=== PATIENT | male | born 1980 | race Hispanic/Latino ===

== ENCOUNTER 2019-12-27 08:46 | Outpatient (CLI) | payer BC, SELFPAY ==
--- NOTE | ~2019-12-27 | US_ITS ---
US thyroid DATE: 12/27/2019 10:04 INDICATION: Thyroid gland mass TECHNIQUE: Real-time and color flow imaging of the thyroid gland COMPARISON: 11/23/2018 thyroid ultrasound examination FINDINGS: There is no thyromegaly, with heterogeneous echotexture and hypervascularity on color flow imaging. The right lobe measures 4 x 1.9 x 2 cm. The left lobe measures 4.1 x 1.5 x 1.3 cm. There is a stable approximately 6 mm hyperechoic smooth ta ller than wide lesion of the left lobe of the thyroid gland which appears stable since 11/23/2018. IMPRESSION: Enlarged heterogeneous hypervascular thyroid Stable 6 mm TR 4 hyperechoic smooth taller than wide lesion of the left lobe of thyroid gland, not si gnificantly changed since 11/23/2018 Reviewed, dictated and finalized at [facility]. Reviewed, dictated and finalized at [facility]. IMPRESSION: Enlarged heterogeneous hypervascular thyroid Stable 6 mm TR 4 hyperechoic smooth taller than wide lesion of the left lobe of thyroid gland, not significantly changed since 11/23/2018
== END 2019-12-27 08:47 | disposition home or self-care (01) ==
PROVIDERS: PCP Registered Nurse; Visit Provider Registered Nurse
DX: E04.9 Nontoxic goiter, unspecified (principal)
CPT/HCPCS: 76536

== ENCOUNTER 2022-08-19 19:20 | Emergency (ER) | payer MEDICAID, SELFPAY ==
[2022-08-19 19:26] VITALS: BP 169/75; PULSE 68; RESP 18; TEMP 36.9; O2SAT 99
--- NOTE | 2022-08-19 20:44 | ED.HA ---
HPI - Headache General Chief Complaint: Headache Stated Complaint: Right sided head pain Time Seen by Provider: 08/19/22 20:30 History of Present Illness HPI Narrative: Patient is a 42 year old male here for evaluation of pain in his right jaw x 3 days. Patient states the pain is worse with opening the mouth and is also present in the left side of his neck. Reports mild sore throat. No visual changes, shortness of breath, fevers, chills, nausea or vomiting. Denies history of previous similar headache. He attempted Tylenol without relief of his symptoms. Related Data Allergies Allergy/AdvReac Type Severity Reaction Status Date / Time No Known Allergies Allergy Verified 08/19/22 19:28 Review of Systems Review of Systems: Gen.: Denies fevers or chills Eyes: Denies eye pain or visual change ENT: Reports right-sided jaw pain. Denies congestion Respiratory: Denies shortness of breath or cough CV: Denies chest pain or palpitations GI: Denies abdominal pain nausea, emesis or diarrhea denies burning, urgency, frequency or hematuria Musculoskeletal: Denies back pain or muscle pain Neuro: Denies numbness, tingling, weakness or focal weakness Skin: Denies rash Except as documented, all other systems reviewed and negative Exam Narrative: APPEARANCE: Well appearing, no pain in distress, well-nourished. Head: Normocephalic and atraumatic. EYES: PERRLA/EOMI, conjunctivae clear NOSE: No nasal drainage EARS: External ear normal in appearance THROAT: Tender to palpation along angle of right mandible, crepitus noted with movement of the jaw Oropharynx is clear. Mucous membranes are moist. NECK: Supple. No adenopathy, no masses. RESPIRATORY: Airway patent, respirations nonlabored. Clear to auscultation bilaterally, no rales, rhonchi, wheezing. CARDIOVASCULAR: Regular rate and rhythm without murmurs, rubs, or gallops. ABDOMINAL: Normoactive bowel sounds. Soft, nontender, nondistended. No rebound tenderness or guarding. MUSCULOSKELETAL: Extremities are warm and well-perfused. Moves all extremities well. No edema. NEURO: Cranial nerves II through XII intact. Normal speech. No focal neurologic deficits. SKIN: Skin is warm and dry. No rashes. PSYCHIATRIC: Normal affect/mood. Course Vital Signs Vital signs: Vital Signs Temperature 98.4 F 08/19/22 19:26 Pulse Rate 68 08/19/22 19:26 Respiratory Rate 18 08/19/22 19:26 Blood Pressure 169/75 H 08/19/22 19:26 Pulse Oximetry 99 08/19/22 19:26 Temperature 98 F 08/19/22 22:12 Pulse Rate 77 08/19/22 22:12 Respiratory Rate 18 08/19/22 22:12 Blood Pressure 118/69 08/19/22 22:12 Pulse Oximetry 99 08/19/22 22:12 MDM - Headache MDM Narrative Medical decision making narrative: Patient is a 42-year-old male here for evaluation of right-sided headache concentrated around his jaw for the past day. He is non-toxic in appearance and has normal vital signs. He has no tenderness to his scalp on exam, he does have reproducible pain and crepitus with range of motion of his jaw. He has poor dentition throughout his oral cavity; but his tonsils are not swollen or erythematous. No visible abscess. He is neurologically intact. Patient was given medicine in the ED with improvement of his symptoms. Suspect TMJ. Less likely temporal arteritis versus acute intracranial process. He will be provided with ENT follow-up. Return precautions were discussed and he voiced understanding. Discharge Plan Discharge Clinical Impression: TMJ arthropathy Patient Disposition: Home, Self-Care Condition: Stable Instructions: Antibiotic Form, Temporomandibular Disorder (ED) Additional Instructions: Your symptoms today are likely consistent with TMJ disease and arthritis in your jaw. Please continue Tylenol and ibuprofen as needed for pain. Follow-up with the ENT next week if your symptoms persist. Return to the ED for visual changes, nausea or vomiting, fevers or chills. Fo
[2022-08-19] MEDS: PROCHLORPERAZINE EDISYLATE 10 MG/2 ML VIAL IV PUSH (21:49)
[2022-08-19] MEDS: SODIUM CHLORIDE 0.9% IV 1,000 ML 999 ML IV CONT (21:49)
[2022-08-19] MEDS: DEXAMETHASONE SOD PHOS INJ 4 MG/ML VIAL IV PUSH (21:50)
[2022-08-19] MEDS: KETOROLAC 15 MG/ML VIAL (*BKC) IV PUSH (21:50)
[2022-08-19 22:12] VITALS: BP 118/69; PULSE 77; RESP 18; TEMP 36.6; O2SAT 99
--- NOTE | 2022-08-29 05:55 | PC.NURSE ---
IV NS bolus completed and stopped on 08/19/2022 @ 2300.
== END 2022-08-19 22:13 | disposition home or self-care (01) ==
PROVIDERS: Emergency Provider Physician Assistant; PCP Registered Nurse
DX: M26.651 Arthropathy of right temporomandibular joint (principal)
CPT/HCPCS: 96361; 96374; 96375; 99284; J0780; J1100; J1885; J7030

== ENCOUNTER 2023-08-29 16:24 | Outpatient (CLI) | payer OTHER, SELFPAY ==
--- NOTE | ~2023-08-29 | US_ITS ---
EXAMINATION: US thyroid DATE: 08/29/2023 17:01 INDICATION: Mass of thyroid. TECHNIQUE: Multiple ultrasound images of the thyroid were obtained. COMPARISON: Thyroid ultrasound 12/27/2019, 11/23/2018 FINDINGS: The right thyroid lobe measures 4.5 x 1.5 x 2.3 cm. The left thyroid lobe measures 4.1 x 1.6 x 2.0 c m. The thyroid demonstrates heterogeneous hypoechogenicity and increased vascularity. In the left th yroid lobe, there is a 7 mm solid, hyperechoic, wider than tall nodule with smooth margin without ech ogenic foci (TI-RADS TR3). IMPRESSION: 1. Heterogeneous, hypervascular thyroid, consistent with chronic lymphocytic (Theresa) thyroiditis. 2. Small thyroid nodule, stable from 11/23/2018, likely benign. No follow-up is needed. Reviewed, dictated and finalized at [facility] IMPRESSION: 1. Heterogeneous, hypervascular thyroid, consistent with chronic lymphocytic (H ashimoto) thyroiditis. 2. Small thyroid nodule, stable from 11/23/2018, likely benign. No follow-up is n eeded.
== END 2023-08-29 16:25 | disposition home or self-care (01) ==
PROVIDERS: PCP Registered Nurse; Visit Provider Registered Nurse
DX: E04.9 Nontoxic goiter, unspecified (principal)
CPT/HCPCS: 76536

== ENCOUNTER 2025-01-14 11:36 | Emergency (ER) | payer OTHER, SELFPAY ==
--- NOTE | ~2025-01-14 | XR_ITS ---
EXAM/ PROCEDURE: XR foot RT min 3V - 01/14/2025 11:47 CDT HISTORY: 44 years old Male with RT foot pain, med/lat/top of foot injury yesterday COMPARISON: None available TECHNIQUE: Three view(s) FINDINGS/ IMPRESSION: There are no fractures or dislocations.Joint space narrowing, subchondral sclerosis, subchondral cyst formation and osteophyte formation, compatible with mild osteoarthritis. Mild calcaneal enthesopathy . Reviewed, dictated and finalized at [facility].
--- NOTE | 2025-01-14 11:44 | ED_ITS ---
HPI - Extremity Injury (Lower) General Chief Complaint: Extremity Injury, Lower Stated Complaint: Right Foot Pain Time Seen by Provider: 01/14/25 11:37 Source: patient Mode of arrival: ambulatory Limitations: no limitations History of Present Illness HPI Narrative: Patient is a 44-year-old male who presents right foot pain after machine fell on foot yesterday while doing yd work. States he was initially able to walk but after few hours the swelling began and it hurts to ambulate. Patient has been using home crutches since. Related Data Home Medications ?Medication ?Instructions ?Recorded ?Confirmed ?Last Taken ?Type amlodipine 2.5 mg tablet mg 01/14/25 Unknown History metoprolol succinate 25 mg mg PO 01/14/25 Unknown History tablet,extended release 24 hr Allergies Allergy/AdvReac Type Severity Reaction Status Date / Time No Known Allergies Allergy Verified 01/14/25 11:37 Review of Systems Review of Systems: All systems reviewed & are unremarkable except as noted in HPI and below Constitutional: Constitutional: Denies body ache(s), Denies chills, Denies fatigue, Denies fever(s), Denies headache(s), Denies malaise and Denies weakness Eyes: Eyes: Denies blurry vision, Denies irritation and Denies loss of vision ENT: Denies otalgia, Denies headache(s), Denies nasal discharge, Denies sinus pain and Denies sore throat Cardiovascular: Cardiovascular: Denies chest pain, Denies irregular heart rhythm and Denies dyspnea Respiratory: Respiratory: Denies dyspnea Gastrointestinal: Gastrointestinal: Denies abdominal pain, Denies melena, Denies hematochezia, Denies diarrhea, Denies nausea and Denies vomiting Musculoskeletal: Musculoskeletal: Denies back pain, Denies myalgias and Reports arthralgias Integumentary/Breasts: Skin/Breast: Denies pruritus and Denies rash Neurologic: Denies headache(s), Denies loss of vision and Denies weakness Psychiatric: Psychiatric: Reports no additional psychiatric complaints Endocrine: Endocrine: Denies fatigue PMFSH Comments At time of signature, agree with nursing past medical, surgical, social and family history. There is no relevant family history pertinent to the presenting complaint. Exam Const: General: cooperative, healthy appearing, comfortable, no acute distress and well nourished Nutritional Appearance: well nourished Orientation/consciousness: patient oriented x3 Limitations: no limitations HENMT: Head: normal to inspection, normocephalic and atraumatic Ears: hearing grossly normal bilaterally and external ears normal Face/Nose/Sinus: Normal external nose present, normal facial exam and face symmetric Face and sinus: normal facial exam and face symmetric Mouth: Yes lip normal Eyes: General: appearance normal, both eyes and all related structures Alignment and Position: alignment normal and position normal Periorbital: periorbital findings normal Eyelids: eyelids normal Pupils: Equal, round and reactive pupils present EOM: EOMs intact bilaterally Neck: Neck: normal visual inspection, full ROM and supple Chest: Chest palpation & inspection: normal inspection of the chest Resp: Effort & Inspection: normal respiratory effort and able to speak in complete sentences Auscultation: clear to auscultation bilaterally Cardio: Rate: regular rate Rhythm: regular rhythm Heart sounds: S1 normal heart sound present and S2 normal heart sound present GI: Inspection: normal to inspection Skin: General skin exam: normal color and no rashes or lesions noted Neuro: General: patient oriented x3 and moves all extremities Cranial nerves: Yes Equal, round and reactive pupils present Speech: normal speech Gait exam (Neuro): Normal gait present Extrem: General: normal to inspection, full ROM and no edema Right lower extremity: ankle Details: normal to inspection and normal ROM; achilles tendon exam normal and foot Details: normal capillary refill, tenderness Location: of the dorsal foot Location: proximally, toes with normal ROM, edema Location: diffusely, ecchymosis distal , vascular exam Details: dorsalis pedis pulse present and normal capillary refill and tendon exam Details: active flexion normal Location: of all toes and active extension normal Location: of all toes; no unusual warmth Psych: Appearance: grossly normal and well kempt Mental Status: mental status grossly normal Speech and movement: Normal speech and movement present Affect: normal affect Attitude: cooperative Thought process: Normal thought process present Course Course Emergency Course: Patient is aware of diagnosis, understands and agrees to treatment plan. Anticipatory guidance given. Patient agrees to follow-up as directed and is aware of reasons to seek care at the emergency department. Portions of this record may have been created with voice recognition software Level of Care: Express Care Visit Vital Signs Vital signs: Reviewed MDM - Extremity Injury (Lower) MDM Narrative Medical decision making narrative: Patient using home crutches well with no assistance. elie wrap applied Pt well hydrated appearing, in no respiratory distress, hemodynamically stable. Recommend supportive care. The patient is stable at time of discharge the clinical impression was discussed and the patient was given the opportunity to ask questions, which were addressed as completely as possible given the information available at present. Anticipatory guidance and return to care precautions were discussed and the importance of primary care follow-up was stressed and encouraged. The patient voiced understanding of the plan, indications to return, and the need for follow-up. Exam findings show no acute concerns or changes Patient is appropriate for outpatient treatment and follow-up. Differential Diagnosis Differential diagnosis: Likely ankle sprain and strain, ankle fracture and other (Foot fracture, foot strain, contusion, less likely crush injury or compartment syndrome) Medical Records Attestation: I reviewed the patient's medical records. Imaging Data Radiologist's impression: EXAM/ PROCEDURE: XR foot RT min 3V - 01/14/2025 11:47 CDT HISTORY: 44 years old Male with RT foot pain, med/lat/top of foot injury yesterday COMPARISON: None available TECHNIQUE: Three view(s) FINDINGS/ IMPRESSION: There are no fractures or dislocations.Joint space narrowing, subchondral sclerosis, subchondral cyst formation and osteophyte formation, compatible with mild osteoarthritis. Mild calcaneal enthesopathy Discharge Plan Discharge Clinical Impression: Foot sprain Qualifiers: Encounter type: initial encounter Laterality: right Qualified Code(s): S93.601A - Unspecified sprain of right foot, initial encounter Patient Disposition: Home Condition: Stable Instructions: Foot Sprain (ED) Additional Instructions: Xray showed no fracture. Minimize activities that aggravate the condition The RICE protocol. Follow the RICE protocol as soon as possible after your injury: Rest your ankle by not walking on it. Ice should be immediately applied to keep the swelling down. It can be used for 20 to 30 minutes, three or four times daily. Do not apply ice directly to your skin. Compression dressings, bandages or elie-wraps will immobilize and support your injured ankle. Elevate your ankle above the level of your heart as often as possible during the first 48 hours. Medication: Nonsteroidal anti-inflammatory drugs (NSAIDs) such as ibuprofen and naproxen can help control pain and swelling. Because they improve function by both reducing swelling and controlling pain, they are a better option for mild sprains than narcotic pain medicines. Please schedule a follow-up visit with your personal physician for further evaluation and treatment within 1week OR If your symptoms persist, change or worsen significantly before you can contact your personal physician then please, without delay, go to the emergency department for further evaluation. La radiograf?a no mostr? fractura. Minimice las actividades que agraven la afecci?n. El protocolo RICE. Siga el protocolo RICE lo antes posible despu?s de la lesi?n: Descanse el tobillo evitando caminar. Aplique hielo inmediatamente para reducir la hinchaz?n. Puede usarlo de 20 a 30 minutos, kimmy o cuatro veces al d?a. No aplique hielo directamente sobre la piel. Los vendajes de compresi?n, las vendas o las vendas el?sticas inmovilizar?n y sujetar?n el tobillo lesionado. Eleve el tobillo por encima del nivel del coraz?n con la mayor frecuencia posible latonia las primeras 48 horas. Medicamentos: Los antiinflamatorios no esteroideos (MICHAEL), maxx el ibuprofeno y el naproxeno, pueden ayudar a controlar el dolor y la hinchaz?n. Dado que mejoran la funci?n al reducir la hinchaz?n y controlar el dolor, son epifanio mejor opci?n para los esguinces leves que los analg?sicos narc?ticos. Programe epifanio visita de seguimiento con kate m?dico personal para epifanio evaluaci?n y tratamiento adicionales dentro de 1 semana O si charles s?ntomas persisten, cambian o empeoran significativamente antes de poder comunicarse con kate m?dico personal, entonces, sin demora, dir?arya al departamento de emergencias para epifanio evaluaci?n adicional. Patient Language: [place]er Prescriptions: No Action amlodipine 2.5 mg tablet metoprolol succinate 25 mg tablet extended release 24 hr PO Follow-up/Referrals: Amanda,JOSE L Guillen [Primary Care Provider] - 3 Days Andrés Patterson MD [Physician] - Time of Disposition: 12:17
[2025-01-14 11:45] VITALS: BP 141/64; PULSE 64; RESP 18; TEMP 36.8; O2SAT 98
== END 2025-01-14 12:30 | disposition home or self-care (01) ==
PROVIDERS: Emergency Provider Nurse Practitioner Family; PCP Registered Nurse
DX: S93.601A Unspecified sprain of right foot, initial encounter (principal); W20.8XXA Other cause of strike by thrown, projected or falling object, initial encounter; I10 Essential (primary) hypertension; E05.90 Thyrotoxicosis, unspecified without thyrotoxic crisis or storm
CPT/HCPCS: 73630; 99213; G0463